=== PATIENT | female | born 1985 | race Caucasian/White ===

== ENCOUNTER 2016-12-23 05:50 | Day surgery (SDC) | payer OTHER ==
[2016-12-19 12:18] LABS: HEMATOCRIT 41.8 % (36.0-48.0); HEMOGLOBIN 14.3 g/dL (12.0-16.0)
[2016-12-19 12:44] LABS: BUN (BLOOD UREA NITROGEN) 11 MG/DL (6-23); CALCIUM, SERUM 9.2 MG/DL (8.5-10.4); CHLORIDE, SERUM 97 MMOL/L (96-112); CO2 (CARBON DIOXIDE) 33 MMOL/L (24-34); CREATININE 0.71 MG/DL (0.55-1.02); GFR AFRICAN AMERICAN 130 ML/MIN (>=60); GFR NON AFRICAN AMERICAN 112 ML/MIN (>=60); GLUCOSE, SERUM 84 MG/DL (60-99); POTASSIUM, SERUM 4.3 MMOL/L (3.5-5.3); SODIUM, SERUM 140 MMOL/L (135-148)
--- NOTE | ~2016-12-23 | OP ---
Record Of Operation [facility] [address] [place]. [address] NAME: CRYSTAL OCHOA : 81 STATUS : [facility]#: [id number] AGE: 31 ADM/REG DATE : 12/23/16 MR#: [id number] REPORT SERV DATE: 12/24/16 DICTATED BY: SHANA PERKINS II DATE: 12/23/16 REPORT STATUS : Draft TRANSCRIBED BY: MODTarik DATE: 12/23/16 DATE OF PROCEDURE: 12/23/2016 PREOPERATIVE DIAGNOSES: 1. Stenosis L5-S1. 2. Left lower extremity greater than right lower extremity radiculopathy. 3. Stenosis L5-S1. POSTOPERATIVE DIAGNOSES: 1. Stenosis L5-S1. 2. Left lower extremity greater than right lower extremity radiculopathy. 3. Stenosis L5-S1. PROCEDURES: 1. L5-S1 laminectomy. 2. Use of the microscope and stereotactic spinal imaging. SURGEON: Shana Perkins M.D. FLUIDS REPLACED: 1200 mL LR. ESTIMATED BLOOD LOSS: 20 mL. DRAINS: None. COMPLICATIONS: None. ANTIBIOTIC: Preoperatively. PREOPERATIVE HISTORY: This is a friendly 31-year-old female, who reports significant pain with numbness and tingling into the buttock, leg, and especially the foot. She does not appear to have symptoms classic for neuropathy, but we discussed that it was on the differential diagnosis. She does have issues with her weight. She is significantly obese. We discussed overall the surgical approach for decompression of the nerve roots at L5-S1. Overall we did not feel that a fusion was necessary. We discussed the rates of success versus failure of this approach. In the event of no improvement with her symptoms then she may very well require more aggressive workup for some type of unusual neuropathy. Her description of the numbness and tingling and pain was fairly classic for radiculopathy. We discussed the fact that surgery would not likely cure all of her numbness however, but if it were successfully it should decrease this significantly. She voiced understanding and willingness to proceed. DESCRIPTION OF PROCEDURE: After informed consent was obtained, the patient was brought to the operating room at her request and general anesthesia achieved. She was placed in the prone position, and the back was prepped and draped in a sterile fashion. The stereotactic spinal pin was placed into the right iliac crest followed by intraoperative CT scan. The Record Of Operation [facility] [address] [place]. [address] NAME: CRYSTAL OCHOA : 81 STATUS : [facility] PAT#: [id number] AGE: 31 ADM/REG DATE : 12/23/16 MR#: [id number] REPORT SERV DATE: 12/24/16 DICTATED BY: SHANA PERKINS II DATE: 12/23/16 REPORT STATUS : Draft TRANSCRIBED BY: DAVID DATE: 12/23/16 stereotactic guidance was then used throughout the case. Next, the minimally invasive incision was performed on the left at L5-S1, using stereotactic guidance the quadrant retractor was placed. We had to use the extra long 9 cm blades. The microscope was then brought into place. Under microscopic visualization, the soft tissue was removed from the interlaminar space. The facet capsule was protected. The pars were then identified directly under microscopic visualization, and confirmed with stereotactic guidance. Next, the bilateral decompression was then achieved through the unilateral approach. The laminectomy was then further carried out with the high-speed bur, the Kerrison rongeurs and curettes. The hypertrophic ligamentum flavum was identified. The imaging did indicate significant facet arthrosis at L5-S1 likely weight related. Portions of the facets were now removed and the S1 nerve roots then well decompressed bilaterally. The L5 nerve roots were examined with the short and ball tipped probes, and no significant stenosis noted. At this point, the area was now irrigated followed by confirmation of hemostasis. Again overall I was pleased with the decompression of the S1 nerve roots which did appear to be compressed at the beginning of the decompression. At this point, the hemostasis confirmed. Once again, a standard closure was performed and the patient was then extubated and transferred to PACU in stable condition. I tried to find the in the waiting room, and he was not to be found. I also called the cell phone, and it went to voicemail and I left him a brief voice mail. We will see how she does in recovery room, and possibly be able to be discharged home today. If she is not comfortable we will then bring her in for 23-hour observation. PAULO/DAVID Shana Perkins II, M.D. / [id number] CC: Misti Chen II, NP-C
[~2016-12-23 05:50] MED LIST: CELEXA20 PO; HYGROTON 25 MG25 MG PO; LIOR10 PO; LOP50 PO; NEUR300 PO; SEV VITAMINS PO; SYN125 PO; ULTRAM50 PO; VITAMIN B PO; ZOCOR20 PO; [UNRECOGNIZED DRUG - REMARK]
== END 2016-12-23 12:12 | disposition home or self-care (01) ==
LOC: SDC 05:50
PROVIDERS: Orthopaedic Surgery
PROC: 01NB0ZZ Release Lumbar Nerve, Open Approach (ICD-10-PCS; principal; 2016-12-23 07:15)
DX: M48.07 Spinal stenosis, lumbosacral region (principal); M54.10 Radiculopathy, site unspecified; I34.1 Nonrheumatic mitral (valve) prolapse; G89.29 Other chronic pain; M54.5 Low back pain; E03.9 Hypothyroidism, unspecified; E66.9 Obesity, unspecified; Z68.38 Body mass index [BMI] 38.0-38.9, adult; Z98.84 Bariatric surgery status; Z95.818 Presence of other cardiac implants and grafts; Z88.1 Allergy status to other antibiotic agents; Z91.013 Allergy to seafood; Z91.048 Other nonmedicinal substance allergy status; Z79.899 Other long term (current) drug therapy
CPT/HCPCS: 80048; 84703; 85014; 85018; 88304; 88311; 93005; A9270-GY; J0690; J1170; J2250; J2405; J2710; J3010

== ENCOUNTER 2017-01-05 11:56 | Inpatient (IN) | payer OTHER ==
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
--- NOTE | ~2017-01-05 | OP ---
Record Of Operation [facility] [address] [place]. [address] NAME: CRYSTAL OCHOA : 81 STATUS : ADM IN PAT#: [id number] AGE: 31 ADM/REG DATE : 01/05/17 MR#: [id number] REPORT SERV DATE: 01/09/17 DICTATED BY: SHANA PERKINS II DATE: 01/09/17 REPORT STATUS : Draft TRANSCRIBED BY: MODL DATE: 01/09/17 DATE OF PROCEDURE: 01/05/2017 PREOPERATIVE DIAGNOSIS: Suspected lumbar surgical site infection. POSTOPERATIVE DIAGNOSES: 1. Suspected lumbar surgical site infection. 2. Small cerebrospinal fluid leak. PROCEDURES: 1. Irrigation and debridement of lumbar wound infection. 2. Repair of durotomy, requiring laminectomy. 3. Use of the microscope. SURGEON: Shana Perkins M.D. FLUIDS REPLACED: 800 mL LR. ESTIMATED BLOOD LOSS: 30 mL. PREOPERATIVE HISTORY: This is a friendly 31-year-old female, who was doing well following her laminectomy until recently. She had experienced a very nice improvement in her radiculopathy. She began having increasing back pain approximately three days ago. Please see history and physical for further details. PROCEDURE IN DETAIL: After informed consent was obtained, the patient was brought to the operating room at her request and general anesthesia achieved. She was placed in the prone position. The back was prepped and draped in a sterile fashion. The skin was now incised. There was a significant amount of fluid noted. It was cloudy. It was not purulent. At this point, the area above the fascia was then copiously irrigated. The cultures were taken prior to irrigation. Antibiotic was then given. Next, the fascia was incised. There was no purulence noted in the deep compartment. Next, we placed the deep quadrant retractor down to the laminectomy site. This was a difficult dissection because of the patient's size. We had to use the deeper custom blades. With the microscope now in place, I was able to examine the laminectomy site. There was no purulence noted. However, surprisingly there was a very small amount of CSF appearing fluid emanating from the site. Upon further inspection, I noted a very small durotomy approximately 2-3 mm in diameter. This was adjacent to the bone edge. At this point, we used the Kerrison rongeurs and the high-speed bur to remove additional bone to better visualize the durotomy. Again there was very minimal CSF coming from the area. It appeared that the subarachnoidal membrane was largely intact, but slightly violated and therefore causing some weeping. At this point, I was able to place a Nurolon stitch across the small durotomy. Excellent approximation was performed of the edges. Irrigation was then copiously performed. Please note, also that the CSF weeping from the area was found to be clear. At this point, we then irrigated the area further with a bulb irrigation. Next, we then placed a small DuraGen patch over the site followed by DuraSeal. Prior to the application of these substances a Valsalva maneuver Record Of Operation [place] [id number] [facility] [place]. [address] NAME: CRYSTAL OCHOA : 81 STATUS : ADM IN PAT#: [id number] AGE: 31 ADM/REG DATE : 01/05/17 MR#: [id number] REPORT SERV DATE: 01/09/17 DICTATED BY: SHANA PERKINS II DATE: 01/09/17 REPORT STATUS : Draft TRANSCRIBED BY: DAVID DATE: 01/09/17 revealed no evidence of CSF. Next, the standard closure was performed. We did place a drain above the fascia. At this point, the standard closure was performed including dressing application, and the patient was then extubated and transferred to PACU in stable condition. PAULO/DAVID Shana Perkins II, M.D. / [id number] CC: Misti Chen II, NP-C
[2017-01-05 14:12] LABS: BASOPHILS 0.2 %; BASOPHILS ABSOLUTE 0.04 10/3/uL (0.0-0.16); EOSINOPHILS 0.3 %; EOSINOPHILS ABSOLUTE 0.06 10/3/uL (0.0-0.53); HEMATOCRIT 40.9 % (36.0-48.0); HEMOGLOBIN 13.9 g/dL (12.0-16.0); IMMATURE GRANULOCYTES 0.6 %; IMMATURE GRANULOCYTES ABSOLUTE 0.13 10/3/uL (0.0-0.11); LYMPHOCYTES 8.7 %; LYMPHOCYTES ABSOLUTE 1.82 10/3/uL (0.67-4.30); MEAN CORPUSCULAR HEMOGLOB 29.2 pg (26.0-34.0); MEAN PLATELET VOLUME 10.6 fL (9.2-13.0); MONOCYTES 5.6 %; MONOCYTES ABSOLUTE 1.18 10/3/uL (0.21-1.20); NEUTROPHILS 84.6 %; NEUTROPHILS ABSOLUTE 17.79 10/3/uL (2.02-8.40); PLATELET COUNT 316 10/3/uL (150-400); RBC DISTRIBUTION WIDTH 13.8 % (12.0-16.0); RED CELL COUNT 4.76 10/6/uL (4.0-5.6)
[2017-01-05 14:15] LABS: MANUAL DIFF NO %; MEAN CORPUSCULAR VOLUME 85.9 fL (80-100)
[2017-01-05 14:17] LABS: PARTIAL THROMBO TIME 25.2 SEC (22.5-37.2)
[2017-01-05 14:18] LABS: INTERNATIONAL NORMAL RATI 1.2 UNITS (-); PROTIME (NOT ORD) 14.9 SEC (12.0-14.5)
[2017-01-05 14:29] LABS: A/G RATIO 0.6 (0.7-1.9); ALBUMIN 2.5 G/DL (3.5-5.0); ALKALINE PHOSPHATASE 81 U/L (45-117); BUN (BLOOD UREA NITROGEN) 7 MG/DL (6-23); CALCIUM, SERUM 8.6 MG/DL (8.5-10.4); CHLORIDE, SERUM 103 MMOL/L (96-112); CO2 (CARBON DIOXIDE) 25 MMOL/L (24-34); CREATININE 0.78 MG/DL (0.55-1.02); GFR AFRICAN AMERICAN 116 ML/MIN (>=60); GFR NON AFRICAN AMERICAN 100 ML/MIN (>=60); GLOBULIN 4.5 G/DL (2.5-4.1); GLUCOSE, SERUM 100 MG/DL (60-99); POTASSIUM, SERUM 3.4 MMOL/L (3.5-5.3); SGOT(AST) 15 U/L (5-40); SGPT(ALT) 13 U/L (5-65); SODIUM, SERUM 139 MMOL/L (135-148); TOTAL BILIRUBIN 1.7 MG/DL (0-1.2)
[2017-01-05] MEDS ORDERED: VITAMIN D PO (14:56)
[2017-01-05] MEDS ORDERED: CYANOCOBALAMIN SL (14:57)
[2017-01-05] MEDS ORDERED: CALCIUM CHEWABLE PO (14:57)
[2017-01-05] MEDS ORDERED: CENTRUM PO (14:58)
[2017-01-05] MEDS ORDERED: PROBIOTIC PO (14:58)
[2017-01-05] MEDS ORDERED: TRAZ50 PO (14:59)
[2017-01-06 07:09] LABS: BASOPHILS 0.2 %; BASOPHILS ABSOLUTE 0.05 10/3/uL (0.0-0.16); EOSINOPHILS 0.5 %; EOSINOPHILS ABSOLUTE 0.11 10/3/uL (0.0-0.53); HEMOGLOBIN 11.7 g/dL (12.0-16.0); IMMATURE GRANULOCYTES 0.5 %; LYMPHOCYTES 11.4 %; LYMPHOCYTES ABSOLUTE 2.45 10/3/uL (0.67-4.30); MEAN CORPUSCULAR HEMOGLOB 29.3 pg (26.0-34.0); MEAN PLATELET VOLUME 10.4 fL (9.2-13.0); MONOCYTES 6.8 %; MONOCYTES ABSOLUTE 1.45 10/3/uL (0.21-1.20); NEUTROPHILS 80.6 %; NEUTROPHILS ABSOLUTE 17.26 10/3/uL (2.02-8.40); PLATELET COUNT 279 10/3/uL (150-400); RBC DISTRIBUTION WIDTH 13.8 % (12.0-16.0); WHITE BLOOD CELLS 21.4 10/3/uL (4.5-10.5)
[2017-01-06 07:13] LABS: HEMATOCRIT 34.4 % (36.0-48.0); MANUAL DIFF NO %
[2017-01-08 14:35] LABS: BASOPHILS 0.3 %; BASOPHILS ABSOLUTE 0.03 10/3/uL (0.0-0.16); EOSINOPHILS 4.8 %; EOSINOPHILS ABSOLUTE 0.54 10/3/uL (0.0-0.53); HEMATOCRIT 32.5 % (36.0-48.0); IMMATURE GRANULOCYTES 0.3 %; IMMATURE GRANULOCYTES ABSOLUTE 0.03 10/3/uL (0.0-0.11); LYMPHOCYTES 25.8 %; MEAN CORPUS HGB CONC 33.8 g/dL (32.0-36.0); MEAN CORPUSCULAR HEMOGLOB 29.3 pg (26.0-34.0); MEAN CORPUSCULAR VOLUME 86.4 fL (80-100); MEAN PLATELET VOLUME 10.3 fL (9.2-13.0); MONOCYTES 6.3 %; MONOCYTES ABSOLUTE 0.71 10/3/uL (0.21-1.20); NEUTROPHILS 62.5 %; NEUTROPHILS ABSOLUTE 7.01 10/3/uL (2.02-8.40); PLATELET COUNT 354 10/3/uL (150-400); RBC DISTRIBUTION WIDTH 13.2 % (12.0-16.0); RED CELL COUNT 3.76 10/6/uL (4.0-5.6)
[2017-01-08 14:36] LABS: MANUAL DIFF NO %; WHITE BLOOD CELLS 11.2 10/3/uL (4.5-10.5)
[2017-01-08 14:48] LABS: BUN (BLOOD UREA NITROGEN) 5 MG/DL (6-23); CALCIUM, SERUM 8.3 MG/DL (8.5-10.4); CHLORIDE, SERUM 97 MMOL/L (96-112); CO2 (CARBON DIOXIDE) 35 MMOL/L (24-34); CREATININE 0.62 MG/DL (0.55-1.02); GFR AFRICAN AMERICAN 137 ML/MIN (>=60); GFR NON AFRICAN AMERICAN 118 ML/MIN (>=60); GLUCOSE, SERUM 90 MG/DL (60-99); SODIUM, SERUM 139 MMOL/L (135-148)
[2017-01-09 06:03] LABS: BASOPHILS 0.4 %; BASOPHILS ABSOLUTE 0.04 10/3/uL (0.0-0.16); EOSINOPHILS 4.2 %; EOSINOPHILS ABSOLUTE 0.44 10/3/uL (0.0-0.53); HEMATOCRIT 33.5 % (36.0-48.0); HEMOGLOBIN 11.3 g/dL (12.0-16.0); IMMATURE GRANULOCYTES 0.3 %; IMMATURE GRANULOCYTES ABSOLUTE 0.03 10/3/uL (0.0-0.11); LYMPHOCYTES 28.4 %; LYMPHOCYTES ABSOLUTE 2.94 10/3/uL (0.67-4.30); MEAN CORPUS HGB CONC 33.7 g/dL (32.0-36.0); MEAN CORPUSCULAR HEMOGLOB 29.2 pg (26.0-34.0); MEAN CORPUSCULAR VOLUME 86.6 fL (80-100); MEAN PLATELET VOLUME 10.4 fL (9.2-13.0); MONOCYTES 9.2 %; MONOCYTES ABSOLUTE 0.95 10/3/uL (0.21-1.20); NEUTROPHILS 57.5 %; NEUTROPHILS ABSOLUTE 5.97 10/3/uL (2.02-8.40); PLATELET COUNT 403 10/3/uL (150-400); RBC DISTRIBUTION WIDTH 13.1 % (12.0-16.0); RED CELL COUNT 3.87 10/6/uL (4.0-5.6); WHITE BLOOD CELLS 10.4 10/3/uL (4.5-10.5)
[2017-01-09 06:04] LABS: MANUAL DIFF NO %
[2017-01-09 06:13] LABS: BUN (BLOOD UREA NITROGEN) 5 MG/DL (6-23); CALCIUM, SERUM 8.7 MG/DL (8.5-10.4); CHLORIDE, SERUM 98 MMOL/L (96-112); CO2 (CARBON DIOXIDE) 37 MMOL/L (24-34); CREATININE 0.59 MG/DL (0.55-1.02); GFR AFRICAN AMERICAN 140 ML/MIN (>=60); GFR NON AFRICAN AMERICAN 120 ML/MIN (>=60); GLUCOSE, SERUM 89 MG/DL (60-99); POTASSIUM, SERUM 3.2 MMOL/L (3.5-5.3); SODIUM, SERUM 144 MMOL/L (135-148)
[2017-01-09] MEDS ORDERED: MSCONT15 PO (13:21)
[2017-01-09] MEDS ORDERED: V2 PO (13:22)
[2017-01-09] MEDS ORDERED: PERCOCET 10/3251 TAB PO (13:24)
[2017-01-10 05:11] LABS: BASOPHILS 0.7 %; BASOPHILS ABSOLUTE 0.07 10/3/uL (0.0-0.16); EOSINOPHILS 5.1 %; EOSINOPHILS ABSOLUTE 0.52 10/3/uL (0.0-0.53); HEMATOCRIT 33.2 % (36.0-48.0); HEMOGLOBIN 11.2 g/dL (12.0-16.0); IMMATURE GRANULOCYTES 0.4 %; IMMATURE GRANULOCYTES ABSOLUTE 0.04 10/3/uL (0.0-0.11); LYMPHOCYTES 30.1 %; LYMPHOCYTES ABSOLUTE 3.04 10/3/uL (0.67-4.30); MEAN CORPUS HGB CONC 33.7 g/dL (32.0-36.0); MEAN PLATELET VOLUME 10.3 fL (9.2-13.0); MONOCYTES 10.3 %; MONOCYTES ABSOLUTE 1.04 10/3/uL (0.21-1.20); NEUTROPHILS 53.4 %; PLATELET COUNT 407 10/3/uL (150-400); RBC DISTRIBUTION WIDTH 12.9 % (12.0-16.0); RED CELL COUNT 3.86 10/6/uL (4.0-5.6); WHITE BLOOD CELLS 10.1 10/3/uL (4.5-10.5)
[2017-01-10 05:14] LABS: MANUAL DIFF NO %
[2017-01-10 05:24] LABS: BUN (BLOOD UREA NITROGEN) 8 MG/DL (6-23); CALCIUM, SERUM 8.4 MG/DL (8.5-10.4); CHLORIDE, SERUM 97 MMOL/L (96-112); CO2 (CARBON DIOXIDE) 33 MMOL/L (24-34); CREATININE 0.76 MG/DL (0.55-1.02); GFR AFRICAN AMERICAN 119 ML/MIN (>=60); GFR NON AFRICAN AMERICAN 103 ML/MIN (>=60); GLUCOSE, SERUM 94 MG/DL (60-99); SODIUM, SERUM 140 MMOL/L (135-148)
[2017-01-10] MEDS ORDERED: PERCOCET 10/3251 TAB PO (14:00)
[2017-01-10] MEDS ORDERED: V2 PO (14:02)
[2017-01-10] MEDS ORDERED: MSCONT15 PO (14:03)
[2017-01-10] MEDS ORDERED: MVI PO (14:07)
== END 2017-01-10 16:27 | disposition home health service (06) | DRG 857 ==
LOC: 1SO 11:56
PROVIDERS: Internal Medicine Infectious Disease; Orthopaedic Surgery
PROC: 02HV33Z Insertion of Infusion Device into Superior Vena Cava, Percutaneous Approach (ICD-10-PCS; 2017-01-08)
PROC: 4A02X4A Measurement of Cardiac Electrical Activity, Guidance, External Approach (ICD-10-PCS; 2017-01-08)
PROC: 0JD70ZZ Extraction of Back Subcutaneous Tissue and Fascia, Open Approach (ICD-10-PCS; principal; 2017-01-09)
PROC: 00UT0JZ Supplement Spinal Meninges with Synthetic Substitute, Open Approach (ICD-10-PCS; 2017-01-09)
DX: T81.4XXA Infection following a procedure, initial encounter (principal); G97.41 Accidental puncture or laceration of dura during a procedure; Z68.41 Body mass index [BMI] 40.0-44.9, adult; E03.9 Hypothyroidism, unspecified; E66.01 Morbid (severe) obesity due to excess calories; I34.1 Nonrheumatic mitral (valve) prolapse; W51.XXXA Accidental striking against or bumped into by another person, initial encounter; Y83.8 Other surgical procedures as the cause of abnormal reaction of the patient, or of later complication, without mention of misadventure at the time of the procedure; B95.61 Methicillin susceptible Staphylococcus aureus infection as the cause of diseases classified elsewhere; Z79.891 Long term (current) use of opiate analgesic; Z79.899 Other long term (current) drug therapy; Z88.8 Allergy status to other drugs, medicaments and biological substances; Z91.013 Allergy to seafood; Z91.048 Other nonmedicinal substance allergy status
CPT/HCPCS: 36569; 72132; 80048; 80053; 80202; 83690; 84703; 85025; 85610; 85730; 87015; 87070; 87075; 87077; 87102; 87116; 87186; 87205; 97110-GP; 97116-GP; 97161-GP; A9270-GY; C1751; C1768; J1170; J2250; J2405; J2550; J2710; J3010; J3370; Q9967

== ENCOUNTER 2017-01-24 20:32 | Inpatient (IN) | payer OTHER ==
--- NOTE | ~2017-01-24 | DS ---
Discharge Summary [facility] [address] [place]. [address] NAME: CRYSTAL OCHOA : 81 STATUS : DIS IN PAT#: [id number] AGE: 31 ADM/REG DATE : 01/24/17 MR#: [id number] REPORT SERV DATE: 02/03/17 DICTATED BY: SHANA PERKINS II DATE: 02/02/17 REPORT STATUS : Draft TRANSCRIBED BY: DAVID DATE: 02/02/17 Data Collection from hospitalization DISCHARGE DIAGNOSES: 1. History of laminectomy-incision and drainage. 2. History of recent methicillin-resistant Staphylococcus aureus infection with small spinal fluid leak. 3. History of mitral valve prolapse. 4. Obesity. CONSULTATIONS: 1. John Pereira M.D. 2. Raghu Queen M.D. PROCEDURES PERFORMED: CT scan of the lumbar spine without contrast, 01/25/2017. DISCHARGE MEDICATIONS: Lioresal 10 mg twice a day as needed, Hygroton 25 mg every morning, vitamin D3 5000 units daily, Celexa 20 mg at bedtime, vitamin B12 2500 mcg daily, Neurontin 300 mg twice a day, Synthroid 88 mcg every morning, Lopressor 50 mg twice a day, Endocet 10/325 one to two tablets every four hours as needed, MiraLax powder 9 g daily as needed, vancomycin as instructed. CONDITION ON DISCHARGE: Stable. DISPOSITION: The patient was discharged home to be followed by home health care on a regular high-protein diet with activities as instructed. She would follow up with me as needed. She will follow up with Dr. John Pereira as needed. She was to follow up with Jailene Seay of Primary Care 2 weeks following discharge for blood pressure recheck. HOSPITAL COURSE: This is a 31-year-old female who presented to the emergency room with some fevers and chills. She did report some fever. She was found to have overall normal labs and normal healing incision. Given the fevers, it was felt that she should be admitted at this time for further evaluation and treatment. Upon admission, she had recent fevers despite being on antibiotics. Inflammatory markers were going to be checked. A CT scan was requested. Overall, she looked much better than she did at her last hospitalization. She was very comfortable. She did have some leg pain. We did not anticipate that she would need any surgery during this hospitalization. The following day, she was seen by Dr. John Pereira. Her white count was 5.1. Her vancomycin was continued. She had no new symptoms. A CT scan had been requested. CT scan of the lumbar spine without contrast had shown improving but persistent gas collection extending from L4 to S1 which was similar but decreasing in size from prior exam. There was also a gas containing collection posterior to the paraspinal musculature that could be seen on today's exam which had not been fully imaged. If the patient was febrile, we may wish to consider CT-guided aspiration. She was evaluated by Physical Therapy. She was seen by Dr. Rahgu Queen regarding hypotension. She had not been taking beta-guerrero or MS Contin at home secondary to hypotension. She had a flat affect. A normal saline bolus was given. A repeat bolus would be performed. Beta-guerrero and diuretics were going to be held. Discharge Summary [place] [id number] [facility] [place]. [address] NAME: CRYSTAL OCHOA : 81 STATUS : DIS IN PAT#: [id number] AGE: 31 ADM/REG DATE : 01/24/17 MR#: [id number] REPORT SERV DATE: 02/03/17 DICTATED BY: SHANA PERKINS II DATE: 02/02/17 REPORT STATUS : Draft TRANSCRIBED BY: DAVID DATE: 02/02/17 Orthostatics were going to be checked. She had poor oral intake. Ensure was going to be given with meals. Blood pressure medications were held. On the , she remained stable. She complained of some right lower extremity spasm and radiculopathy that would stop at the knee. It was felt that the increased leg pain was likely due to swelling/inflammation. We would like to avoid further surgery if possible. Vancomycin continued. Orthostatic blood pressures were checked. Discharge planning was performed. She was felt to have a questionable persistent infection. She was in no acute distress. She did walk in the [place] with a rolling walker with Physical Therapy. Blood cultures revealed no growth. We continued to hold beta-guerrero and diuretic. IV antibiotics were continued. On 01/27/2017, she wanted to go home. She remained stable. She was alert and cooperative. She had no focal deficits. Vancomycin was going to be continued at home. She had no new symptoms. Discharge instructions were given. Due to her improved and stable condition, she was discharged home to be followed by home health care with the above-stated instructions. Information collected by: Mae Oneil I submit the above information as my discharge summary. DOUG/DAVID Shana Perkins II, M.D. / [id number] CC: Misti Chen II, M.D.
--- NOTE | ~2017-01-24 | HP ---
History And Physical [place] [address] [place]. [address] NAME: CRYSTAL OCHOA : 81 STATUS : DIS IN PAT#: [id number] AGE: 31 ADM/REG DATE : 01/24/17 MR#: [id number] REPORT SERV DATE: 01/27/17 DICTATED BY: SHANA PERKINS II DATE: 01/27/17 REPORT STATUS : Draft TRANSCRIBED BY: MODTarik DATE: 01/27/17 DATE OF ADMISSION: 01/24/2017 CHIEF COMPLAINT: Fever. HISTORY OF PRESENT ILLNESS: This is a friendly 31-year-old female, who came to the ER with some fevers and chills. She reports some fever. She was found to have overall normal labs and normal healing incision. However, given the fevers, Infectious Disease preferred that she be admitted. PAST MEDICAL HISTORY: 1. Recent laminectomy with MRSA infection with small spinal fluid leak repaired at the last surgery. 2. History of mitral valve prolapse (she is unable to have an MRI currently). 3. Obesity. REVIEW OF SYSTEMS: The patient denies any bowel or bladder changes. She reports still doing well with her left leg pain. She is having some right lower extremity pain. She denies any headache. She denies any chest pain or neck stiffness or rigidity. MEDICATIONS: Please see the MAR. PHYSICAL EXAMINATION: GENERAL: Reveals a female, in no acute distress. She is awake, alert, oriented. NECK: Supple. CHEST: Reveals no stridor on inspiration or expiration. CARDIOVASCULAR: Regular rate and rhythm when I palpate the radial pulse. The incision overall appears without erythema. It is well approximated and is dry. There is no fluctuance which she previously had prior to last surgery. Labs at this point are unremarkable. She is currently afebrile, although had a slight fever in the emergency room. IMPRESSION AND PLAN: Female with some recent fever despite being on antibiotics. We will check her inflammatory markers and also order a CT scan and have Infectious Disease see her and evaluate for other possible etiologies. Overall, she looks much better than she did last hospitalization. She is very comfortable. She is having some leg pain. She reports that she walks which I suspect is from the facet changes and possibly a seroma. I do not anticipate she will need any surgery during this hospitalization, but we will obtain these other studies and discuss with Dr. Pereira. PAULO/DAVID History And Physical [place] [address] [place]. [address] NAME: CRYSTAL OCHOA : 81 STATUS : DIS IN PAT#: [id number] AGE: 31 ADM/REG DATE : 01/24/17 MR#: [id number] REPORT SERV DATE: 01/27/17 DICTATED BY: SHANA PERKINS II DATE: 01/27/17 REPORT STATUS : Draft TRANSCRIBED BY: DAVID DATE: 01/27/17 Shana Perkins II, M.D. / [id number] CC: Misti Chen II, Amie Sims
[2017-01-24 16:35] LABS: BASOPHILS 0.6 %; BASOPHILS ABSOLUTE 0.04 10/3/uL (0.0-0.16); EOSINOPHILS 2.6 %; EOSINOPHILS ABSOLUTE 0.17 10/3/uL (0.0-0.53); ER CBC TAT 0 Hrs 08 Mins; HEMOGLOBIN 13.3 g/dL (12.0-16.0); IMMATURE GRANULOCYTES 0.2 %; IMMATURE GRANULOCYTES ABSOLUTE 0.01 10/3/uL (0.0-0.11); LYMPHOCYTES 15.4 %; LYMPHOCYTES ABSOLUTE 1.02 10/3/uL (0.67-4.30); MEAN CORPUS HGB CONC 34.2 g/dL (32.0-36.0); MEAN CORPUSCULAR HEMOGLOB 28.9 pg (26.0-34.0); MEAN CORPUSCULAR VOLUME 84.6 fL (80-100); MEAN PLATELET VOLUME 10.7 fL (9.2-13.0); MONOCYTES 10.7 %; MONOCYTES ABSOLUTE 0.71 10/3/uL (0.21-1.20); NEUTROPHILS 70.5 %; NEUTROPHILS ABSOLUTE 4.67 10/3/uL (2.02-8.40); RBC DISTRIBUTION WIDTH 13.6 % (12.0-16.0); WHITE BLOOD CELLS 6.6 10/3/uL (4.5-10.5)
[2017-01-24 16:37] LABS: HEMATOCRIT 38.9 % (36.0-48.0); MANUAL DIFF NO %; PLATELET COUNT 280 10/3/uL (150-400)
[2017-01-24 16:42] LABS: ASCORBIC ACID (UR NOT ORDER) NEG (NEG); BILIRUBIN, URINE NEGATIVE (NEG); ER URINALYSIS TAT 0 Hrs 15 Mins; KETONE, URINE NEGATIVE (NEG); LEUKOCYTE ESTERASE(NOT OR TRACE (NEG); NITRITE (URINE) NEG (NEG); WBC (NOT ORDERED) (RFLEX) 5 (0-5)
[2017-01-24 16:49] LABS: A/G RATIO 0.5 (0.7-1.9); ALBUMIN 2.6 G/DL (3.5-5.0); BUN (BLOOD UREA NITROGEN) 7 MG/DL (6-23); CALCIUM, SERUM 8.9 MG/DL (8.5-10.4); CHLORIDE, SERUM 101 MMOL/L (96-112); CREATININE 0.81 MG/DL (0.55-1.02); GFR AFRICAN AMERICAN 111 ML/MIN (>=60); GFR NON AFRICAN AMERICAN 95 ML/MIN (>=60); GLOBULIN 4.8 G/DL (2.5-4.1); GLUCOSE, SERUM 110 MG/DL (60-99); POTASSIUM, SERUM 3.6 MMOL/L (3.5-5.3); SGOT(AST) 78 U/L (5-40); SGPT(ALT) 45 U/L (5-65); SODIUM, SERUM 138 MMOL/L (135-148); TOTAL PROTEIN 7.4 G/DL (6.0-8.5)
[2017-01-24 16:50] LABS: ALKALINE PHOSPHATASE 119 U/L (45-117); CO2 (CARBON DIOXIDE) 24 MMOL/L (24-34); TOTAL BILIRUBIN 0.6 MG/DL (0-1.2)
[~2017-01-24 20:32] MED LIST changes: +CALCIUM CHEWABLE PO; +CENTRUM PO; +CYANOCOBALAMIN SL; +MSCONT15 PO; +MVI PO; +PERCOCET 10/3251 TAB PO; +PROBIOTIC PO; +TRAZ50 PO; +V2 PO; +VITAMIN D PO
[2017-01-24] MEDS ORDERED: V2 PO (20:53)
[2017-01-24] MEDS ORDERED: ENDOCET1 TA3 PO (20:53)
[2017-01-24] MEDS ORDERED: PR25 PO (20:54)
[2017-01-24] MEDS ORDERED: SYN88 PO (20:54)
[2017-01-24] MEDS ORDERED: CELEXA20 PO (20:54)
[2017-01-24] MEDS ORDERED: HYGROTON 25 MG25 MG PO (20:55)
[2017-01-24] MEDS ORDERED: VANCOMYCIN IV IV (20:55)
[2017-01-24] MEDS ORDERED: NEUR300 PO (20:55)
[2017-01-24] MEDS ORDERED: LIOR10 PO (20:55)
[2017-01-24] MEDS ORDERED: VITAMIN D31000 UNIT PO (20:56)
[2017-01-24] MEDS ORDERED: VITAMIN B-122500 MCG PO (20:56)
[2017-01-24] MEDS ORDERED: MIRALAX POWDER1 PKT PO (20:56)
[2017-01-24 20:57] LABS: PROCALCITONIN <0.05 ng/mL (<0.5)
[2017-01-24] MEDS ORDERED: LOP50 PO (20:57)
[2017-01-24 21:39] LABS: LACTATE 1.7 MMOL/L (0.3-2.4)
[2017-01-25 04:56] LABS: BASOPHILS 0.4 %; BASOPHILS ABSOLUTE 0.02 10/3/uL (0.0-0.16); EOSINOPHILS 3.7 %; EOSINOPHILS ABSOLUTE 0.19 10/3/uL (0.0-0.53); HEMOGLOBIN 11.6 g/dL (12.0-16.0); IMMATURE GRANULOCYTES 0.2 %; IMMATURE GRANULOCYTES ABSOLUTE 0.01 10/3/uL (0.0-0.11); LYMPHOCYTES ABSOLUTE 1.23 10/3/uL (0.67-4.30); MEAN CORPUS HGB CONC 34.1 g/dL (32.0-36.0); MEAN CORPUSCULAR HEMOGLOB 29.3 pg (26.0-34.0); MEAN CORPUSCULAR VOLUME 85.9 fL (80-100); MEAN PLATELET VOLUME 10.4 fL (9.2-13.0); MONOCYTES 10.4 %; MONOCYTES ABSOLUTE 0.53 10/3/uL (0.21-1.20); NEUTROPHILS 61.3 %; NEUTROPHILS ABSOLUTE 3.14 10/3/uL (2.02-8.40); PLATELET COUNT 240 10/3/uL (150-400); RBC DISTRIBUTION WIDTH 13.5 % (12.0-16.0); RED CELL COUNT 3.96 10/6/uL (4.0-5.6); WHITE BLOOD CELLS 5.1 10/3/uL (4.5-10.5)
[2017-01-25 04:59] LABS: MANUAL DIFF NO %
[2017-01-25 05:11] LABS: BUN (BLOOD UREA NITROGEN) 9 MG/DL (6-23); CALCIUM, SERUM 8.4 MG/DL (8.5-10.4); CHLORIDE, SERUM 105 MMOL/L (96-112); CREATININE 0.64 MG/DL (0.55-1.02); GFR AFRICAN AMERICAN 136 ML/MIN (>=60); GFR NON AFRICAN AMERICAN 117 ML/MIN (>=60); GLUCOSE, SERUM 96 MG/DL (60-99); POTASSIUM, SERUM 3.7 MMOL/L (3.5-5.3); SODIUM, SERUM 141 MMOL/L (135-148)
[2017-01-25 05:13] LABS: CO2 (CARBON DIOXIDE) 29 MMOL/L (24-34)
[2017-01-26 06:06] LABS: BASOPHILS 0.4 %; BASOPHILS ABSOLUTE 0.02 10/3/uL (0.0-0.16); EOSINOPHILS 5.5 %; EOSINOPHILS ABSOLUTE 0.26 10/3/uL (0.0-0.53); HEMATOCRIT 31.2 % (36.0-48.0); HEMOGLOBIN 10.6 g/dL (12.0-16.0); LYMPHOCYTES 29.5 %; LYMPHOCYTES ABSOLUTE 1.39 10/3/uL (0.67-4.30); MEAN CORPUSCULAR VOLUME 85.2 fL (80-100); MEAN PLATELET VOLUME 10.4 fL (9.2-13.0); MONOCYTES 9.1 %; MONOCYTES ABSOLUTE 0.43 10/3/uL (0.21-1.20); NEUTROPHILS 55.5 %; NEUTROPHILS ABSOLUTE 2.61 10/3/uL (2.02-8.40); PLATELET COUNT 235 10/3/uL (150-400); RBC DISTRIBUTION WIDTH 13.8 % (12.0-16.0); RED CELL COUNT 3.66 10/6/uL (4.0-5.6); WHITE BLOOD CELLS 4.7 10/3/uL (4.5-10.5)
[2017-01-26 06:12] LABS: MANUAL DIFF NO %
[2017-01-26 06:17] LABS: BUN (BLOOD UREA NITROGEN) 10 MG/DL (6-23); CHLORIDE, SERUM 106 MMOL/L (96-112); CO2 (CARBON DIOXIDE) 26 MMOL/L (24-34); CREATININE 0.58 MG/DL (0.55-1.02); GFR AFRICAN AMERICAN 140 ML/MIN (>=60); GFR NON AFRICAN AMERICAN 121 ML/MIN (>=60); GLUCOSE, SERUM 86 MG/DL (60-99); SODIUM, SERUM 141 MMOL/L (135-148)
[2017-01-27 04:31] LABS: BASOPHILS 0.7 %; BASOPHILS ABSOLUTE 0.03 10/3/uL (0.0-0.16); EOSINOPHILS 6.5 %; EOSINOPHILS ABSOLUTE 0.28 10/3/uL (0.0-0.53); HEMATOCRIT 29.8 % (36.0-48.0); IMMATURE GRANULOCYTES 0.2 %; IMMATURE GRANULOCYTES ABSOLUTE 0.01 10/3/uL (0.0-0.11); LYMPHOCYTES 32.9 %; LYMPHOCYTES ABSOLUTE 1.41 10/3/uL (0.67-4.30); MANUAL DIFF NO %; MEAN CORPUS HGB CONC 33.6 g/dL (32.0-36.0); MEAN CORPUSCULAR HEMOGLOB 29.1 pg (26.0-34.0); MEAN CORPUSCULAR VOLUME 86.6 fL (80-100); MEAN PLATELET VOLUME 10.4 fL (9.2-13.0); MONOCYTES 12.1 %; MONOCYTES ABSOLUTE 0.52 10/3/uL (0.21-1.20); NEUTROPHILS 47.6 %; NEUTROPHILS ABSOLUTE 2.04 10/3/uL (2.02-8.40); PLATELET COUNT 221 10/3/uL (150-400); RBC DISTRIBUTION WIDTH 13.5 % (12.0-16.0); RED CELL COUNT 3.44 10/6/uL (4.0-5.6); WHITE BLOOD CELLS 4.3 10/3/uL (4.5-10.5)
[2017-01-27 04:43] LABS: BUN (BLOOD UREA NITROGEN) 7 MG/DL (6-23); CALCIUM, SERUM 7.8 MG/DL (8.5-10.4); CHLORIDE, SERUM 108 MMOL/L (96-112); CO2 (CARBON DIOXIDE) 28 MMOL/L (24-34); CREATININE 0.65 MG/DL (0.55-1.02); GFR AFRICAN AMERICAN 135 ML/MIN (>=60); GFR NON AFRICAN AMERICAN 117 ML/MIN (>=60); GLUCOSE, SERUM 85 MG/DL (60-99); SODIUM, SERUM 145 MMOL/L (135-148)
== END 2017-01-27 16:41 | disposition home health service (06) | DRG 863 ==
LOC: ER 20:32 → 3SO 21:13
PROVIDERS: Emergency Medicine; Nurse Practitioner; Orthopaedic Surgery
DX: T81.4XXA Infection following a procedure, initial encounter (principal); I95.9 Hypotension, unspecified; Z68.41 Body mass index [BMI] 40.0-44.9, adult; E03.9 Hypothyroidism, unspecified; E66.01 Morbid (severe) obesity due to excess calories; I34.1 Nonrheumatic mitral (valve) prolapse
CPT/HCPCS: 71020; 72131; 80048; 80053; 80202; 81001; 83605; 83735; 84145; 85025; 85303; 85652; 87040; 87070; 87205; 97110-GP; 97116-GP; 97161-GP; 99284; A9270-GY; G0463; J3370

== ENCOUNTER 2017-02-14 17:39 | Inpatient (IN) | payer OTHER ==
--- NOTE | ~2017-02-14 | DS ---
Discharge Summary [facility] [address] [place]. [address] NAME: CRYSTAL OCHOA : 81 STATUS : DIS IN PAT#: [id number] AGE: 31 ADM/REG DATE : 02/14/17 MR#: [id number] REPORT SERV DATE: 03/03/17 DICTATED BY: SHANA PERKINS II DATE: 03/02/17 REPORT STATUS : Draft TRANSCRIBED BY: DAVID DATE: 03/02/17 Data Collection from hospitalization DISCHARGE DIAGNOSIS(ES): 1. Persistent lumbar wound dehiscence with purulence. 2. Scoliosis. 3. Obesity. CONSULTATIONS: Dr. John Pereira. PROCEDURES PERFORMED: Excision of draining sinus tract including irrigation and debridement of lumbar wound infection, 02/16/2017. CT scan of the lumbar spine without contrast, 02/15/2017. MEDICATIONS: Vitamin D3 at 5000 units daily, Celexa 20 mg at bedtime, vitamin B12 at 2500 mcg daily, Neurontin 300 mg twice a day, Synthroid 88 mcg every morning, Endocet 10/325 one to two tablets every four hours as needed, Phenergan 25 mg every four hours as needed, Zanaflex 4 mg twice a day as needed. CONDITION AT DISCHARGE: Stable. DISPOSITION: The patient was discharged home to be followed by Home Healthcare on a regular diet with activities as instructed. She would follow up with me two and a half weeks following discharge. HOSPITAL COURSE: This is a 31-year-old female, who is status post lumbar wound irrigation and debridement. She had been on antibiotics. She has had a very small draining sinus tract over the past week. Treatment options were discussed and it was elected to proceed with surgical intervention. She was admitted to the hospital for further evaluation and treatment. Upon admission, had no complaints of pain. She was stable. Plans were being made to proceed with surgical intervention. She was seen in consultation by Dr. John Pereira. The patient has had persistent lumbar wound dehiscence with purulence. She does have significant obesity. The incision revealed no erythema, but there was some purulence. This appeared to be more of a draining sinus tract without any evidence of spinal fluid. Vancomycin was continued. On 02/16/2017, she had no new symptoms. She still had some drainage. Blood cultures were negative. She was taken to the operating room, where she underwent the above-mentioned procedure. She tolerated this well. There were no complications. On postop day one, pain had improved. She reported feeling some pressure with the wound VAC. She remained on the [employer] MAP INKER. She was evaluated by Physical Therapy. On postop day two, she had no new symptoms. She remained afebrile. Her lungs were clear. White count was 8.1. Vancomycin was continued. If able, we were going to remove the TECH[employer]LLUSTR[employer] MAP INKER. On 02/19/2017, she remained stable. She was alert and cooperative. She continued to progress. Discharge planning was performed. She met her goals of physical therapy. On 02/21/2017, she had no focal deficits. She was in no acute distress. Discharge instructions were given. Due to her improved and stable condition, she was discharged home Discharge Summary [address] [address] NAME: CRYSTAL OCHOA : 81 STATUS : DIS IN PAT#: [id number] AGE: 31 ADM/REG DATE : 02/14/17 MR#: [id number] REPORT SERV DATE: 03/03/17 DICTATED BY: SHANA PERKINS II DATE: 03/02/17 REPORT STATUS : Draft TRANSCRIBED BY: DAVID DATE: 03/02/17 to be followed by Home Healthcare with the above-stated instructions. Information collected by: Mae Oneil I submit the above information as my discharge summary. DOUG/DAVID Shana Perkins II, M.D. / [id number] CC: Misti Chen II
--- NOTE | ~2017-02-14 | HP ---
History And Physical [place] [id number] [facility] [place]. [address] NAME: CRYSTAL OCHOA : [birth year] STATUS : ADM IN [facility]#: [id number] AGE: 31 ADM/REG DATE : 02/14/17 MR#: [id number] REPORT SERV DATE: 02/19/17 DICTATED BY: SHANA PERKINS II DATE: 02/19/17 REPORT STATUS : Draft TRANSCRIBED BY: DAVID DATE: 02/19/17 DATE OF ADMISSION: 02/14/2017 CHIEF COMPLAINT: Low back pain. HISTORY OF PRESENT ILLNESS: This a friendly 31-year-old female, who is status post lumbar wound irrigation and debridement and has been on antibiotics. She has had a very small draining sinus tract in the last week. She was admitted for likely additional surgery. PAST MEDICAL HISTORY: As above. She does have significant obesity as well. She has had some issues with her heart and is soon to have a heart device removed. This heart device has precluded an MRI. MEDICATIONS: Please see the MAR. REVIEW OF SYSTEMS: The patient denies any bowel or bladder changes. PHYSICAL EXAMINATION: GENERAL: Reveals a female, in no acute distress. She is awake, alert, and oriented. She has no stridor on inspiration or expiration. CARDIOVASCULAR: Regular rate and rhythm when I palpate the radial pulse. The incision reveals no erythema, but there is some purulence and originating from an approximately 3 to 4 mm sinus tract. There was no evidence of clear fluid. NEUROLOGICAL: She is intact and sensory exam reveals some mild dysesthesias in the left foot. MEDICAL DECISION MAKING: A 31-year-old female, status post laminectomy with postoperative wound infection. This appears to be more of a draining sinus tract without any evidence of spinal fluid. The plan will be for irrigation debridement and an essentially a wound revision with excision of the skin and subcutaneous tissue around the sinus tract. PAULO/DAVID Shana Perkins II, M.D. / [id number] CC: Misti Chen II
--- NOTE | ~2017-02-14 | OP ---
Record Of Operation [facility] [address] [place]. [address] NAME: CRYSTAL OCHOA : 81 STATUS : ADM IN PAT#: [id number] AGE: 31 ADM/REG DATE : 02/14/17 MR#: [id number] REPORT SERV DATE: 02/18/17 DICTATED BY: SHANA PERKINS II DATE: 02/18/17 REPORT STATUS : Draft TRANSCRIBED BY: MODL DATE: 02/18/17 DATE OF PROCEDURE: 02/16/2017 PREOPERATIVE DIAGNOSIS: Persistent lumbar wound dehiscence with purulence. POSTOPERATIVE DIAGNOSIS: Persistent lumbar wound dehiscence with purulence. PROCEDURE: Excision of the draining sinus tract including irrigation and debridement of lumbar wound infection. SURGEON: Shana Perkins M.D. FLUIDS: 700 mL LR. ESTIMATED BLOOD LOSS: 20 mL. New cultures obtained. Vancomycin continued. PREOPERATIVE HISTORY: This is a friendly, 31-year-old female, who is doing better clinically but still has some persistent lumbar wound drainage through a very pinhole sinus tract. The wound overall does not appear significantly erythematous, but there was some mild purulent drainage coming from the sinus tract. Dr. Pereira and I felt the best course of action was to obtain new cultures during surgery, excise the sinus tract, as well as debride the area with likely wound closure. She is unable to have an MRI, but I felt that a CT scan should hopefully able to be used for comparison to the last CT scan, and if diskitis were present, I would suspect there would be some erosive endplate changes likely at this point. The CT scan was obtained the day prior to this surgery and I did not see any obvious erosive changes. DESCRIPTION OF PROCEDURE: After informed consent was obtained, the patient was brought to the operating room at her request and general anesthesia achieved. She was placed in a prone position and the lumbar sinus tract identified. The wound edges including the sinus tract were simply excised. At this point, the skin and subcutaneous tissue were excised including the sinus tract. The deep compartment was identified. The fascia was essentially healed. There was a very small communication between the subfascial layer. Also notably there was no evidence of CSF. I had repaired a very small durotomy at the last surgery. At the time of that surgery, there was a significant amount of CSF. Again, at this operative setting, there was absolutely no evidence of CSF. Also, clinically she had not been having any headaches. At this point, irrigation was performed after cultures were obtained. Following the cultures, a multilevel layer closure was performed followed by closure of the freshened skin edges following debridement and excision of the sinus tract. Closure was obtained followed by placement of a superficial Prevena wound device. The patient was then extubated and transferred to PACU in stable condition. Record Of Operation [address] [place]. [address] NAME: CRYSTAL OCHOA : 81 STATUS : ADM IN PAT#: [id number] AGE: 31 ADM/REG DATE : 02/14/17 MR#: [id number] REPORT SERV DATE: 02/18/17 DICTATED BY: SHANA PERKINS II DATE: 02/18/17 REPORT STATUS : Draft TRANSCRIBED BY: DAVID DATE: 02/18/17 PAULO/DAVID Shana Perkins II, M.D. / [id number] CC: Misti Chen II, AMIE SIMS
[~2017-02-14 17:39] MED LIST changes: +ENDOCET1 TA3 PO; +MIRALAX POWDER1 PKT PO; +PR25 PO; +SYN88 PO; +VANCOMYCIN IV IV; +VITAMIN B-122500 MCG PO; +VITAMIN D31000 UNIT PO
[2017-02-14 18:47] LABS: BASOPHILS 0.8 %; BASOPHILS ABSOLUTE 0.05 10/3/uL (0.0-0.16); EOSINOPHILS 5.9 %; EOSINOPHILS ABSOLUTE 0.39 10/3/uL (0.0-0.53); HEMOGLOBIN 11.6 g/dL (12.0-16.0); IMMATURE GRANULOCYTES 0.2 %; IMMATURE GRANULOCYTES ABSOLUTE 0.01 10/3/uL (0.0-0.11); LYMPHOCYTES ABSOLUTE 1.79 10/3/uL (0.67-4.30); MEAN CORPUS HGB CONC 33.6 g/dL (32.0-36.0); MEAN CORPUSCULAR HEMOGLOB 28.6 pg (26.0-34.0); MEAN CORPUSCULAR VOLUME 85.2 fL (80-100); MONOCYTES 5.9 %; MONOCYTES ABSOLUTE 0.39 10/3/uL (0.21-1.20); NEUTROPHILS 60.2 %; NEUTROPHILS ABSOLUTE 3.99 10/3/uL (2.02-8.40); RBC DISTRIBUTION WIDTH 14.1 % (12.0-16.0); RED CELL COUNT 4.05 10/6/uL (4.0-5.6)
[2017-02-14 18:50] LABS: HEMATOCRIT 34.5 % (36.0-48.0); MANUAL DIFF NO %; PLATELET COUNT 337 10/3/uL (150-400); WHITE BLOOD CELLS 6.6 10/3/uL (4.5-10.5)
[2017-02-14 19:09] LABS: ALBUMIN 2.6 G/DL (3.5-5.0); BUN (BLOOD UREA NITROGEN) 6 MG/DL (6-23); CALCIUM, SERUM 8.5 MG/DL (8.5-10.4); CHLORIDE, SERUM 108 MMOL/L (96-112); CO2 (CARBON DIOXIDE) 27 MMOL/L (24-34); CREATININE 0.61 MG/DL (0.55-1.02); GFR AFRICAN AMERICAN 138 ML/MIN (>=60); GFR NON AFRICAN AMERICAN 119 ML/MIN (>=60); POTASSIUM, SERUM 3.8 MMOL/L (3.5-5.3); SGOT(AST) 20 U/L (5-40); SGPT(ALT) 22 U/L (5-65); SODIUM, SERUM 145 MMOL/L (135-148); TOTAL BILIRUBIN 0.4 MG/DL (0-1.2); TOTAL PROTEIN 6.4 G/DL (6.0-8.5)
[2017-02-14 19:10] LABS: A/G RATIO 0.7 (0.7-1.9); ALKALINE PHOSPHATASE 100 U/L (45-117); GLOBULIN 3.8 G/DL (2.5-4.1); GLUCOSE, SERUM 110 MG/DL (60-99)
[2017-02-14] MEDS ORDERED: ZANAFLEX 4 MG TA4 MG PO (22:21)
[2017-02-18 04:48] LABS: BASOPHILS 0.5 %; BASOPHILS ABSOLUTE 0.04 10/3/uL (0.0-0.16); EOSINOPHILS 0.8 %; EOSINOPHILS ABSOLUTE 0.07 10/3/uL (0.0-0.53); HEMOGLOBIN 10.1 g/dL (12.0-16.0); IMMATURE GRANULOCYTES 0.4 %; IMMATURE GRANULOCYTES ABSOLUTE 0.03 10/3/uL (0.0-0.11); LYMPHOCYTES 29.6 %; LYMPHOCYTES ABSOLUTE 2.53 10/3/uL (0.67-4.30); MEAN CORPUS HGB CONC 33.7 g/dL (32.0-36.0); MEAN CORPUSCULAR HEMOGLOB 28.9 pg (26.0-34.0); MEAN PLATELET VOLUME 10.4 fL (9.2-13.0); MONOCYTES 8.5 %; MONOCYTES ABSOLUTE 0.73 10/3/uL (0.21-1.20); NEUTROPHILS 60.2 %; NEUTROPHILS ABSOLUTE 5.15 10/3/uL (2.02-8.40); PLATELET COUNT 288 10/3/uL (150-400); RBC DISTRIBUTION WIDTH 14.2 % (12.0-16.0); RED CELL COUNT 3.49 10/6/uL (4.0-5.6); WHITE BLOOD CELLS 8.6 10/3/uL (4.5-10.5)
[2017-02-18 04:52] LABS: MANUAL DIFF NO %
[2017-02-18 05:03] LABS: BUN (BLOOD UREA NITROGEN) 9 MG/DL (6-23); CHLORIDE, SERUM 108 MMOL/L (96-112); CO2 (CARBON DIOXIDE) 27 MMOL/L (24-34); GFR AFRICAN AMERICAN 132 ML/MIN (>=60); GFR NON AFRICAN AMERICAN 114 ML/MIN (>=60); GLUCOSE, SERUM 90 MG/DL (60-99); POTASSIUM, SERUM 3.8 MMOL/L (3.5-5.3); SODIUM, SERUM 144 MMOL/L (135-148)
== END 2017-02-21 13:28 | disposition home or self-care (01) | DRG 903 ==
LOC: 3SO 17:39
PROVIDERS: Internal Medicine Infectious Disease; Orthopaedic Surgery
PROC: 0JB70ZZ Excision of Back Subcutaneous Tissue and Fascia, Open Approach (ICD-10-PCS; principal; 2017-02-14)
DX: T81.31XA Disruption of external operation (surgical) wound, not elsewhere classified, initial encounter (principal); M41.9 Scoliosis, unspecified; F41.9 Anxiety disorder, unspecified; E03.9 Hypothyroidism, unspecified
CPT/HCPCS: 71010; 72131; 80048; 80053; 80202; 82962; 84703; 85025; 87015; 87040; 87070; 87075; 87102; 87116; 87205; 97116-GP; 97161-GP; A9270-GY; J0690; J1170; J2250; J2405; J2710; J3010; J3370